=== PATIENT | female | born 1950 | race Caucasian/White ===

== ENCOUNTER → 2017-12-03 | Outpatient (CLI) | payer MEDICARE ==
--- NOTE | 2017-12-03 18:09 | BD ---
EXAMINATION TYPE: MG DEXA axial skeleton. DATE OF EXAM: 12/03/2017 COMPARISON: NONE CLINICAL HISTORY: 66-year-old female postmenopausal screening Height: 66 IN Weight: 190 LBS FRAX RISK QUESTIONS: Alcohol (3 or more units per day): NO Family History (Parent hip fracture): NO Glucocorticoids (More than 3mos): NO (Ex: prednisone, prednisolone, methylprednisolone, dexamethasone, and hydrocortisone). History of Fracture in Adulthood: NO Secondary Osteoporosis: 1. Type 1 Diabetes: NO 2. Hyperthyroidism: NO 3. Menopause before 45: AGE 58 4. Malnutrition: NO 5. Chronic liver disease: NO Rheumatoid Arthritis: NO Current Tobacco Use: NO RISK FACTORS HISTORY OF: Active: YES Postmenopausal woman: AGE 58 MEDICATIONS: Thyroid Medications: YES Which medication: Synthroid How Lon+ YEARS Additional Medications: CALCIUM, VIT D, SYNTHROID, NORVASC, ZOCOR EXAM MEASUREMENTS: Bone mineral densitometry was performed using the [employer] System. Bone mineral density as measured about the Lumbar spine is: ----- L1-L4(G/cm2): 1.243 T Score Values are as follows: ----- L2: 0.5 ----- L3: 1.2 ----- L4: 0.2 ----- L1-L4: 0.5 Bone mineral density has: Decreased -3.1% since study of: 01/13/2005 Bone mineral density about the R hip (g/cm2): 0.867 Bone mineral density about the L hip (g/cm2): 0.819 T Score values are as follows: -----R Neck: -1.2 -----L Neck: -1.6 -----R Total: -0.8 -----L Total: -1.1 Bone mineral density has: Decreased -7.1% since study of: 01/13/2005 IMPRESSION: Osteopenia (T Score between -2.5 and -1 as noted by T score values There is slightly increased risk of fracture and the patient may be considered for treatment. Re-Screen 2-5 years. NOTE: T-SCORE=SD OF THE YOUNG ADULT MEAN.
== END | disposition home or self-care (01) ==
LOC: RADBDWWP 15:10
PROVIDERS: ATTEND Internal Medicine Endocrinology, Diabetes & Metabolism
DX: M85.80 Other specified disorders of bone density and structure, unspecified site (principal)
CPT/HCPCS: 77080

== ENCOUNTER → 2017-12-03 | Outpatient (CLI) | payer MEDICARE ==
--- NOTE | 2017-12-04 11:30 | MM ---
Reason for exam: screening (asymptomatic). Last mammogram was performed 2 years and 7 months ago. History: Patient is postmenopausal and has history of other cancer at age 53. Taking unspecified hormones for 3 years. Physical Findings: A clinical breast exam by your physician is recommended on an annual basis and results should be correlated with mammographic findings. MG 3D Screening Mammo W/Cad Bilateral CC and MLO view(s) were taken. Prior study comparison: May 11, 2015, bilateral MG screening mammo w CAD. October 03, 2012, bilateral digital screening mammo w/CAD. The breast tissue is heterogeneously dense. This may lower the sensitivity of mammography. Stable benign calcifications. Increasing nodularity upper outer left breast. This finding is changed when compared with previous exams. ASSESSMENT: Incomplete: need additional imaging evaluation, BI-RAD 0 RECOMMENDATION: Special view mammogram of the left breast. If lesion persists on supplemental views, image directed ultrasound is recommended. [facility] will attempt to contact patient to return for supplemental views and ultrasound if indicated.
== END | disposition home or self-care (01) ==
LOC: RADMAMWWP 15:07
PROVIDERS: ATTEND Family Medicine
DX: Z12.31 Encounter for screening mammogram for malignant neoplasm of breast (principal); N95.1 Menopausal and female climacteric states
CPT/HCPCS: 77063; 77067

== ENCOUNTER → 2017-12-05 | Outpatient (CLI) | payer MEDICARE ==
--- NOTE | 2017-12-05 09:09 | MM ---
Reason for exam: additional evaluation requested from abnormal screening. Last mammogram was performed less than 1 month ago. History: Patient is postmenopausal and has history of other cancer at age 53. Taking unspecified hormones for 3 years. Physical Findings: Nurse did not find any significant physical abnormalities on exam. MG 3D Work Up W/Cad LT Spot compression CC, spot compression MLO, and ML view(s) were taken of the left breast. Prior study comparison: December 03, 2017, bilateral MG 3d screening mammo w/cad. May 11, 2015, bilateral MG screening mammo w CAD. The breast tissue is heterogeneously dense. This may lower the sensitivity of mammography. Finding: There is a 9 mm equal density (isodense) mass in the outer quadrant, central position of the left breast. These results were verbally communicated with the patient and result sheet given to the patient on 12/05/17. ASSESSMENT: Incomplete: need additional imaging evaluation, BI-RAD 0 RECOMMENDATION: Ultrasound of the left breast.
--- NOTE | 2017-12-05 09:12 | USB ---
Reason for exam: additional evaluation requested from abnormal screening. History: Patient is postmenopausal and has history of other cancer at age 53. Taking unspecified hormones for 3 years. US Breast Workup LT Left breast ultrasound includes all four quadrants, the retroareolar region and axilla. Finding demonstrates a 0.5 x 1.0 x 0.5cm irregular, mixed lesion at 12 o'clock, duct ectasia at 1 o'clock, a 0.9 x 0.6 x 0.3cm oval, mixed lesion at 3 o'clock, a 0.4 x 0.5 x 0.3cm oval, mixed cluster at 11 o'clock and duct ectasia at 11:30. These results were verbally communicated with the patient and result sheet given to the patient on 12/05/17. ASSESSMENT: Suspicious, BI-RAD 4 RECOMMENDATION: Surgical consultation and ultrasound core biopsy of the left breast. Called Dr. Vicente with mammographic findings and has scheduled an appointment for the patient for 12/05/17 at 9:[address] Andino. PRELIMINARY REPORT CALLED AND FAXED TO DR. ANDINO ON 12/05/17.
== END | disposition home or self-care (01) ==
LOC: RADMAMWWP 07:30
PROVIDERS: ATTEND Family Medicine
DX: R92.8 Other abnormal and inconclusive findings on diagnostic imaging of breast (principal)
CPT/HCPCS: 77065; 76641; G0279

== ENCOUNTER → 2017-12-18 | Day surgery (SDC) | payer MEDICARE ==
[2017-12-18 12:17] VITALS: RESP 16; BMI 30.3
--- NOTE | 2017-12-18 14:00 | USB ---
EXAMINATION TYPE: US biopsy breast VAD LT, MG diagnostic mammo LT wo CAD DATE OF EXAM: 12/18/2017 CLINICAL HISTORY: R92.8 ABN MAMMO. TECHNIQUE: Ultrasound guided core biopsy of left breast. COMPARISON: Exams dating back to 12/03/2017. FINDINGS: The procedure of ultrasound guided core biopsy was explained to the patient. Benefits, alternatives, and risks were discussed. An informed consent was then obtained. Preprocedural timeout was performed. The patient was placed in supine positioning for imaging and for the procedure. The overlying skin was prepped and draped in usual sterile fashion. 10 cc of lidocaine buffered with bicarbonate was used as anesthetic into the skin and subcutaneous tissue up to the 0.5 x 1.0 x 0.5 cm mass stated to be at the 12:00 position in the left breast on the ultrasound of 12/05/2017. Under ultrasound guidance, a 12-gauge vacuum assisted biopsy gun device was used to obtain 5 core samples. Following this, a ribbon-shaped biopsy marker was left in lesion. The patient tolerated the procedure well without any immediate complication. The patient was kept in the radiology department for short stay after the procedure and then discharged home in stable condition. Postprocedural mammogram demonstrates a biopsy marker to be located at approximately the 2:00 position but corresponds to a mammographic mass on the screening mammogram. IMPRESSION: Successful, uncomplicated ultrasound guided core biopsy of an irregular 1.0 cm left breast mass, full pathology results to follow. Pathology Results: Benign BREAST, LEFT, CORE BIOPSY: PROLIFERATIVE FIBROCYSTIC CHANGES INCLUDING MODERATE USUAL TYPE DUCTAL HYPERPLASIA, FIBROSIS, CYSTS AND ADENOSIS Recommendation Follow up mammogram and ultrasound of the left breast in 6 months. JOHNNIE
[2017-12-18 14:32] VITALS: BP 131/71; PULSE 61; TEMP 97.9
== END ==
LOC: RADUSWWP 11:23
PROVIDERS: ATTEND Surgery
DX: N60.92 Unspecified benign mammary dysplasia of left breast (principal); N60.32 Fibrosclerosis of left breast; N60.22 Fibroadenosis of left breast
CPT/HCPCS: 88305; 77065; 19083; A4648; J2001

== ENCOUNTER → 2018-08-20 | Outpatient (CLI) | payer MEDICARE ==
--- NOTE | 2018-08-20 15:04 | MM ---
Reason for exam: follow-up at short interval from prior study. Last mammogram was performed 8 months ago. History: Patient is postmenopausal and has history of other cancer at age 53. Benign US biopsy breast VAD LT of the left breast, December 18, 2017. Taking unspecified hormones for 3 years. Physical Findings: Nurse did not find any significant physical abnormalities on exam. MG 3D Diag Mammo W/Cad LT CC and MLO view(s) were taken of the left breast. Prior study comparison: December 18, 2017, left breast MG diagnostic mammo LT wo CAD. December 05, 2017, left breast MG 3d work up w/cad LT. The breast tissue is heterogeneously dense. This may lower the sensitivity of mammography. There are benign appearing round oval circumscribed left masses, similar to prior exams. No suspicious abnormality. Left ribbon biopsy marker is noted to be lateral but corresponds to sonographic biopsied mass at 12 o'clock possible migration post biopsy. These results were verbally communicated with the patient and result sheet given to the patient on 08/20/18. ASSESSMENT: Benign, BI-RAD 2 RECOMMENDATION: Return to routine screening mammogram schedule for both breasts. Back on schedule for November 2018.
--- NOTE | 2018-08-20 15:06 | USB ---
Reason for exam: follow-up at short interval from prior study. History: Patient is postmenopausal and has history of other cancer at age 53. Benign US biopsy breast VAD LT of the left breast, December 18, 2017. Taking unspecified hormones for 3 years. US Breast LT Left complete breast ultrasound includes all four quadrants, the retroareolar region and axilla. Finding demonstrates a 5 x 2 x 6mm cystic lesion at 12 o'clock, a 4 x 2 x 3mm cystic lesion at 12 o'clock, a 9 x 3 x 7mm cystic lesion at 2 o'clock and a 3 x 4 x 4mm mixed, hypoechoic lesion at 12 o'clock, corresponds to biopsy proven benign etiology. These results were verbally communicated with the patient and result sheet given to the patient on 08/20/18. ASSESSMENT: Benign, BI-RAD 2 RECOMMENDATION: Return to routine screening mammogram schedule for both breasts. Back on schedule for November 2018.
== END | disposition home or self-care (01) ==
LOC: RADMAMWWP 13:36
PROVIDERS: ATTEND Family Medicine
DX: N60.12 Diffuse cystic mastopathy of left breast (principal)
CPT/HCPCS: 77065; 76641; G0279; 77061

== ENCOUNTER 2019-06-06 15:50 | Emergency (ER) | payer MEDICARE ==
[2019-06-06 15:56] VITALS: RESP 18
[2019-06-06 16:46] LABS: Basophils # (A) 0.1 k/uL (0-0.2); Basophils % (A) 1 %; Eosinophils # (A) 0.3 k/uL (0-0.7); Eosinophils % (A) 4 %; HCT 40.3 % (34.0-46.0); HGB 14.1 gm/dL (11.4-16.0); Lymphocytes # (A) 1.1 k/uL (1.0-4.8); Lymphocytes % (A) 16 %; MCH 29.9 pg (25.0-35.0); MCHC 35.1 g/dL (31.0-37.0); MCV 85.2 fL (80.0-100.0); Mean Platelet Volume 7.2; Monocytes # (A) 0.4 k/uL (0-1.0); Monocytes % (A) 5 %; Neutrophils # (A) 4.9 k/uL (1.3-7.7); Neutrophils % (A) 72 %; Platelet Count 186 k/uL (150-450); RBC 4.73 m/uL (3.80-5.40); RDW 14.9 % (11.5-15.5); WBC 6.7 k/uL (3.8-10.6)
--- NOTE | 2019-06-06 16:47 | ED ---
General Adult HPI - General Chief complaint: Recheck/Abnormal Lab/Rx Stated complaint: accidental overdose Time Seen by Provider: 06/06/19 15:59 Source: patient, RN notes reviewed, old records reviewed Mode of arrival: ambulatory Limitations: no limitations - History of Present Illness Initial comments: 68-year-old female patient comes to ED for evaluation of electrolytes. Patient reports that she is supposed to take her potassium pills per day. Patient was excised taking ibuprofen and said of potassium. Patient was taking approximately 2400 mg of ibuprofen once a day for the last 4 days. Patient is asymptomatic this time. Systemic: Pt denies fatigue, fever/chills, rash. Pt denies weakness, night sweats, weight loss. Neuro: Pt denies headache, visual disturbances, syncope or pre-syncope. HEENT: Pt denies ocular discharge or irritation, otalgia, rhinorrhea, pharyngitis or notable lymphadenopathy. Cardiopulmonary: Pt denies chest pain, SOB, heart palpitations, dyspnea on exertion. Abdominal/GI: Pt denies abdominal pain, n/v/d. : Pt denies dysuria, burning w/ urination, frequency/urgency. Denies new onset urinary or bowel incontinence. MSK: Pt denies myalgia, loss of strength or function in extremities. Neuro: Pt denies new onset weakness, paresthesias. - Related Data Home Medications Medication Instructions Recorded Confirmed Levothyroxine Sodium [Synthroid] 125 mcg PO AC-LUNCH 12/05/17 06/06/19 Potassium Chloride [Klor-Con 10] 30 meq PO AC-LUNCH 12/05/17 06/06/19 Simvastatin [Zocor] 40 mg PO AC-LUNCH 12/05/17 06/06/19 amLODIPine [Norvasc] 10 mg PO AC-LUNCH 12/05/17 06/06/19 Calcium/Magnesium/Zinc 1 tab PO AC-LUNCH 06/06/19 06/06/19 [Hredvzd-Njaxyzpsm-Vhul Tablet] Ibuprofen [Motrin] 800 mg PO TID PRN 06/06/19 06/06/19 Loratadine [Alavert] 10 mg PO AC-LUNCH 06/06/19 06/06/19 RX: Melatonin 5 mg PO HS 06/06/19 06/06/19 Allergies Allergy/AdvReac Type Severity Reaction Status Date / Time Sulfa (Sulfonamide Allergy Rash/Hives Verified 06/06/19 16:35 Antibiotics) Review of Systems ROS Statement: Those systems with pertinent positive or pertinent negative responses have been documented in the HPI. ROS Other: All systems not noted in ROS Statement are negative. Past Medical History Past Medical History: Cancer, Hyperlipidemia, Hypertension Additional Past Medical History / Comment(s): Hx. thyroid cancer, seasonal allergies, uses inhalers as needed History of Any Multi-Drug Resistant Organisms: None Reported Past Surgical History: Tonsillectomy Additional Past Surgical History / Comment(s): Bilateral arthroscopic shoulder surgery, thyroid removed Past Anesthesia/Blood Transfusion Reactions: Motion Sickness Past Psychological History: Anxiety, Depression Smoking Status: Former smoker Past Alcohol Use History: Daily Past Drug Use History: None Reported General Exam - General Exam Comments Initial Comments: Constitutional: NAD, AOX3, Pt has pleasant affect. HEENT: NC/AT, trachea midline, neck supple, no lymphadenopathy. Posterior pharynx non erythematous, without exudates. External ears appear normal, without discharge. Mucous membranes moist. Eyes PERRLA, EOM intact. There is no scleral icterus. No pallor noted. Cardiopulmonary: RRR, no murmurs, rubs or gallops, no JVD noted. Lungs CTAB in anterior and posterior calderon. No peripheral edema. Abdominal exam: Abdomen soft and non-distended. Abdomen non-tender to palpation in all 4 quadrants. Bowel sounds active in LLQ. No hepatosplenomegaly. No ecchymosis Neuro: CN II-XII grossly intact. No nuchal rigidity. No raccon eyes, no glover sign, no hemotympanum. No cervical spinal tenderness. MSK: No posterior calf tenderness bilaterally, homans sign negative bilaterally. Posterior tibialis and radial pulse +2 bilaterally. Sensation intact in upper and lower extremities. Full active ROM in upper and lower extremities, 5/5 stregnth. Limitations: no limitations Course Vital Signs 06/06/19 15:52 Temperature 97.2 F L Pulse Rate 82 Respiratory 18 Rate Blood Pressure 161/79 O2 Sat by Pulse 98 Oximetry Medical Decision Making - Medical Decision Making 68-year-old female patient comes to ED for evaluation of electrolytes. Patient reports that she is supposed to take her potassium pills per day. Patient was excised taking ibuprofen and said of potassium. Patient was taking approximately 2400 mg of ibuprofen once a day for the last 4 days. Patient is asymptomatic this time. Patient fell signs stable, afebrile. Physical exam not display acute pathology. Laboratory investigations non-impressive. EKG not concerning for acute ischemia. Patient will discharge, follow up with primary care provider, return to ER if condition worsens. Case discussed with Dr. Landry. - Lab Data Result diagrams: 06/06/19 16:37 06/06/19 16:37 Lab Results 06/06/19 06/06/19 Range/Units 16:37 16:37 WBC 6.7 (3.8-10.6) k/uL RBC 4.73 (3.80-5.40) m/uL Hgb 14.1 (11.4-16.0) gm/dL Hct 40.3 (34.0-46.0) % MCV 85.2 (80.0-100.0) fL MCH 29.9 (25.0-35.0) pg MCHC 35.1 (31.0-37.0) g/dL RDW 14.9 (11.5-15.5) % Plt Count 186 (150-450) k/uL Neutrophils % 72 % Lymphocytes % 16 % Monocytes % 5 % Eosinophils % 4 % Basophils % 1 % Neutrophils # 4.9 (1.3-7.7) k/uL Lymphocytes # 1.1 (1.0-4.8) k/uL Monocytes # 0.4 (0-1.0) k/uL Eosinophils # 0.3 (0-0.7) k/uL Basophils # 0.1 (0-0.2) k/uL Sodium 140 (137-145) mmol/L Potassium 3.6 (3.5-5.1) mmol/L Chloride 104 (98-107) mmol/L Carbon Dioxide 27 (22-30) mmol/L Anion Gap 9 mmol/L BUN 26 H (7-17) mg/dL Creatinine 0.81 (0.52-1.04) mg/dL Est GFR (CKD-EPI)AfAm 88 (>60 ml/min/1.73 sqM) Est GFR (CKD-EPI)NonAf 76 (>60 ml/min/1.73 sqM) Glucose 99 (74-99) mg/dL Calcium 9.2 (8.4-10.2) mg/dL Total Bilirubin 1.3 (0.2-1.3) mg/dL AST 27 (14-36) U/L ALT 31 (9-52) U/L Alkaline Phosphatase 74 (38-126) U/L Total Protein 6.8 (6.3-8.2) g/dL Albumin 4.2 (3.5-5.0) g/dL - EKG Data -: EKG Interpreted by Me (and Dr. Landry) EKG Comments: Ventricular rate 75,. Full and 52, QRS 80, QT/QTC 398 since 444, normal sinus rhythm, possible left atrial enlargement, nonspecific ST and [place], abnormal EKG. No concern for acute ischemia. Disposition Clinical Impression: History of low potassium Disposition: HOME SELF-CARE Condition: Stable Additional Instructions: Patient to adhere to previously discussed treatment plan and will take medication(s) as directed. Patient to follow up with PCP in 1-2 days. Patient to return to ED if symptoms do not improve. Is patient prescribed a controlled substance at d/c from ED?: No Referrals: Nam Vicente DO [Primary Care Provider] - 1-2 days
[2019-06-06 16:55] LABS: Albumin 4.2 g/dL (3.5-5.0); Calcium 9.2 mg/dL (8.4-10.2); Potassium 3.6 mmol/L (3.5-5.1); Total Bilirubin 1.3 mg/dL (0.2-1.3); Total Protein 6.8 g/dL (6.3-8.2)
[2019-06-06 17:37] VITALS: BP 124/66; PULSE 64; TEMP 97.7
== END 2019-06-06 17:37 | disposition home or self-care (01) ==
LOC: EC 15:50
DX: T39.311A Poisoning by propionic acid derivatives, accidental (unintentional), initial encounter (principal); Z86.39 Personal history of other endocrine, nutritional and metabolic disease; E78.5 Hyperlipidemia, unspecified; I10 Essential (primary) hypertension; Z79.890 Hormone replacement therapy; Z79.899 Other long term (current) drug therapy; Z88.2 Allergy status to sulfonamides; Z87.891 Personal history of nicotine dependence; Z85.850 Personal history of malignant neoplasm of thyroid
CPT/HCPCS: 36415; 80053; 85025; 93005; 99284

== ENCOUNTER 2021-04-11 10:18 | Emergency (ER) | payer MEDICARE ==
[2021-04-11 10:40] VITALS: BP 172/92; PULSE 94; RESP 18; TEMP 97.2
--- NOTE | 2021-04-11 10:57 | ED ---
Female Urogenital HPI - General Chief complaint: Urogenital Stated complaint: Female Source: patient, RN notes reviewed, old records reviewed Mode of arrival: ambulatory Limitations: no limitations - History of Present Illness Initial comments: 70-year-old white female, alert and oriented 4, presents to the emergency room with complaints of dysuria that started yesterday. Patient states that she's had intermittent intense feeling but does not describe it as pain but gets relief after she urinates. Patient states that she was overdoing it working with her in the yard yesterday and developed the symptoms. She states that she urinate but does not describe it as dysuria she is voiding large amounts at a time and does get relief after urination. Patient states today when she urinated there was a little bit of pink on the toilet paper and she didn't want it to progress so she came to the emergency room. Patient has a history of hypertension, high cholesterol, thyroid cancer, she did have a volar mold that was removed and not cancerous in the past. Patient denies fevers, nausea or vomiting. States had a bowel movement yesterday and was constipated. MD Complaint: dysuria -: days(s) (1) Radiation: non-radiating Severity scale (1-10): 0 Quality: other ("intense" fullness) Consistency: intermittent, now resolved Improves with: urination Worsens with: none Patient : No Associated Symptoms: other (Vaginal prolapse) - Related Data Home Medications Medication Instructions Recorded Confirmed Levothyroxine Sodium [Synthroid] 125 mcg PO AC-LUNCH 12/05/17 06/06/19 Potassium Chloride [Klor-Con 10] 30 meq PO AC-LUNCH 12/05/17 06/06/19 Simvastatin [Zocor] 40 mg PO AC-LUNCH 12/05/17 06/06/19 amLODIPine [Norvasc] 10 mg PO AC-LUNCH 12/05/17 06/06/19 Calcium/Magnesium/Zinc 1 tab PO AC-LUNCH 06/06/19 06/06/19 [Fbqkhbq-Rihwountc-Ntwi Tablet] Ibuprofen [Motrin] 800 mg PO TID PRN 06/06/19 06/06/19 Loratadine [Alavert] 10 mg PO AC-LUNCH 06/06/19 06/06/19 Melatonin 5 mg PO HS 06/06/19 06/06/19 Previous Rx's Medication Instructions Recorded Cephalexin [Keflex] 500 mg PO BID 7 Days #14 cap 04/11/21 Allergies Allergy/AdvReac Type Severity Reaction Status Date / Time Sulfa (Sulfonamide Allergy Rash/Hives Verified 04/11/21 10:40 Antibiotics) Review of Systems ROS Statement: Those systems with pertinent positive or pertinent negative responses have been documented in the HPI. ROS Other: All systems not noted in ROS Statement are negative. Past Medical History Past Medical History: Cancer, Hyperlipidemia, Hypertension Additional Past Medical History / Comment(s): Hx. thyroid cancer, seasonal allergies, uses inhalers as needed History of Any Multi-Drug Resistant Organisms: None Reported Past Surgical History: Tonsillectomy Additional Past Surgical History / Comment(s): Bilateral arthroscopic shoulder surgery, thyroid removed, biopsy/removal of lump from vulva- patient states not cancer Past Anesthesia/Blood Transfusion Reactions: Motion Sickness Past Psychological History: Anxiety, Depression Smoking Status: Never smoker Past Alcohol Use History: Daily Past Drug Use History: None Reported General Exam Limitations: no limitations General appearance: alert, in no apparent distress Head exam: Present: atraumatic, normocephalic, normal inspection Eye exam: Present: normal appearance, PERRL, EOMI. Absent: scleral icterus, conjunctival injection, periorbital swelling Pupils: Present: normal accommodation ENT exam: Present: normal exam, normal oropharynx, mucous membranes moist Neck exam: Present: normal inspection, full ROM. Absent: tenderness, meningismus, lymphadenopathy, thyromegaly Respiratory exam: Present: normal lung sounds bilaterally. Absent: respiratory distress, wheezes, chest wall tenderness, accessory muscle use, decreased breath sounds, prolonged expiratory Cardiovascular Exam: Present: regular rate, normal rhythm, normal heart sounds. Absent: systolic murmur, diastolic murmur, rubs, gallop, clicks GI/Abdominal exam: Present: soft, normal bowel sounds. Absent: distended, tenderness, guarding, rebound, rigid, hernia External exam: Absent: erythema, swelling, lacerations, ecchymosis Speculum exam: Absent: vaginal bleeding, foreign body By manual exam: Absent: cervical motion tenderness, adnexal tenderness, adnexal mass, uterine tenderness (vaginal prolapse with straining) Extremities exam: Present: normal inspection, full ROM, normal capillary refill. Absent: tenderness, pedal edema, joint swelling, calf tenderness Back exam: Present: normal inspection, full ROM. Absent: tenderness, CVA tenderness (R), CVA tenderness (L), muscle spasm, paraspinal tenderness, vertebral tenderness, rash noted Neurological exam: Present: alert, oriented X3, CN II-XII intact Psychiatric exam: Present: normal affect, normal mood Skin exam: Present: warm, dry, intact, normal color. Absent: rash, cyanosis, diaphoretic, erythema, petechiae, pallor, mottled Course Vital Signs 04/11/21 10:37 Temperature 97.2 F L Pulse Rate 94 Respiratory 18 Rate Blood Pressure 172/92 O2 Sat by Pulse 96 Oximetry Medical Decision Making - Medical Decision Making UA shows wbc count 129 with positive leukocytes, positive ketones and positive blood patient will be treated with Keflex 500 mg twice a day. Patient has no systemic symptoms no fevers not tachycardic, no nausea vomiting or diarrhea. Patient has no CVA tenderness. Patient has no vaginal bleeding or vaginal discharge. Case discussed with Dr. Landry - Lab Data Lab Results 04/11/21 Range/Units 11:02 Urine Color Light Red Urine Appearance Cloudy H (Clear) Urine pH 6.0 (5.0-8.0) Ur Specific [place] 1.020 (1.001-1.035) Urine Protein 1+ H (Negative) Urine Glucose (UA) Negative (Negative) Urine Ketones 1+ H (Negative) Urine Blood Large H (Negative) Urine Nitrite Negative (Negative) Urine Bilirubin Negative (Negative) Urine Urobilinogen <2.0 (<2.0) mg/dL Ur Leukocyte Esterase Large H (Negative) Urine RBC >182 H (0-5) /hpf Urine WBC 129 H (0-5) /hpf Ur Squamous Epith Cells 2 (0-4) /hpf Urine Bacteria Few H (None) /hpf Disposition Clinical Impression: Urinary tract infection Disposition: HOME SELF-CARE Condition: Good Instructions (If sedation given, give patient instructions): Urinary Tract I nfection in Women (ED) Additional Instructions: Keep your appointment with Dr. Vicente in April. Take Keflex as prescribed and return if worsening symptoms. Prescriptions: Cephalexin [Keflex] 500 mg PO BID 7 Days #14 cap Is patient prescribed a controlled substance at d/c from ED?: No Referrals: Nam Vicente, [Primary Care Provider] - 1-2 days Time of Disposition: 11:59
[2021-04-11 11:37] LABS: Appearance,Urine Cloudy (Clear); Bacteria,Urine Few /hpf; Bilirubin,Urine Negative (Negative); Blood,Urine Large (Negative); Color,Urine Light Red; Glucose,Urine (UA) Negative (Negative); Ketones,Urine 1+ (Negative); Leukocyte Esterase,Urine Large (Negative); Nitrite,Urine Negative (Negative); Protein,Urine 1+ (Negative); RBC,Urine >182 /hpf (0-5); Squamous Epithelial Cell,Urine 2 /hpf (0-4); Urobilinogen,Urine <2.0 mg/dL (<2.0); WBC,Urine 129 /hpf (0-5)
== END 2021-04-11 12:04 | disposition home or self-care (01) ==
LOC: EC 10:18
DX: N39.0 Urinary tract infection, site not specified (principal); I10 Essential (primary) hypertension; E78.5 Hyperlipidemia, unspecified; F32.9 Major depressive disorder, single episode, unspecified; F41.9 Anxiety disorder, unspecified; N81.10 Cystocele, unspecified
CPT/HCPCS: 81001; 87086; 99283

== ENCOUNTER → 2021-06-28 | Outpatient (CLI) | payer MEDICARE ==
[2021-06-28 15:59] LABS: Basophils % (A) 1 %; Eosinophils # (A) 0.1 k/uL (0-0.7); Eosinophils % (A) 1 %; HCT 43.5 % (34.0-46.0); HGB 14.9 gm/dL (11.4-16.0); Lymphocytes # (A) 1.2 k/uL (1.0-4.8); Lymphocytes % (A) 22 %; MCH 30.5 pg (25.0-35.0); MCHC 34.2 g/dL (31.0-37.0); MCV 89.2 fL (80.0-100.0); Mean Platelet Volume 7.8; Monocytes # (A) 0.3 k/uL (0-1.0); Monocytes % (A) 5 %; Neutrophils % (A) 71 %; Platelet Count 173 k/uL (150-450); RBC 4.87 m/uL (3.80-5.40); RDW 12.9 % (11.5-15.5); WBC 5.7 k/uL (3.8-10.6)
[2021-06-28 16:09] LABS: African American GFR (CKD) >90 (>60 ml/min/1.73 sqM); Anion Gap 6 mmol/L; Blood Urea Nitrogen 22 mg/dL (7-17); Carbon Dioxide 26 mmol/L (22-30); Chloride 106 mmol/L (98-107); Non-African American GFR(CKD) 85 (>60 ml/min/1.73 sqM); Potassium 3.9 mmol/L (3.5-5.1); Sodium 138 mmol/L (137-145)
== END | disposition home or self-care (01) ==
LOC: LABPAT 14:36
PROVIDERS: ATTEND Obstetrics & Gynecology
DX: Z01.818 Encounter for other preprocedural examination (principal); N81.6 Rectocele; I10 Essential (primary) hypertension; R94.31 Abnormal electrocardiogram [ECG] [EKG]
CPT/HCPCS: 36415; 80051; 82565; 84520; 85025; 87086; 93005

== ENCOUNTER 2021-07-19 05:49 | Day surgery (SDC) | payer MEDICARE ==
[2021-06-30 09:47] VITALS: BMI 21.1
--- NOTE | 2021-07-04 12:56 | HP ---
HISTORY AND PHYSICAL DATE OF DICTATION: 07/04/2021. DATE OF SURGERY: 07/05/2021 HISTORY OF PRESENT ILLNESS: The patient is a 70-year-old 3, para 3-0-0-3, who presents on referral from Dr. Vicente for evaluation of rectocele. She reports having developed a bulge outside of the vagina which has been present for about 2 months and reduces on its own at nighttime or at rest. She does not require splinting in order to either urinate or evacuate her bowels. She is no longer at this time sexually active. PAST MEDICAL HISTORY: Significant for asthma, hyperlipidemia, hypertension, hypothyroidism, and history of thyroid cancer. SURGICAL HISTORY: She has undergone plasty, breast biopsy, colonoscopy, endocervical polypectomy, hemorrhoidectomy, thyroidectomy, and tonsillectomy. There have been no significant anesthetic concerns by her report. OBSTETRICAL HISTORY: 3, para 3-0-0-3, with three term vaginal deliveries without complications. GYNECOLOGIC HISTORY: Unremarkable, with no history of any infections to include STDs. She otherwise has only issues as listed in history of present illness. FAMILY HISTORY: Noncontributory. SOCIAL HISTORY: The patient is and a nonsmoker. She otherwise is retired and denies any other social concerns. CURRENT MEDICATIONS: Current medications include albuterol metered-dose inhaler as needed, amlodipine 10 mg daily, Klor-Con 10 mg, two tablets 3 times daily, Simvastatin 40 mg daily, Synthroid 100 mcg daily. ALLERGIES: SULFA and ENVIRONMENTAL MOLDS. REVIEW OF SYSTEMS: Review of systems is confined to history of present illness. PHYSICAL EXAMINATION: Vital signs are stable. The patient is afebrile. In general, this is a well- developed, well-nourished white female in no acute distress. Her heart has a regular rhythm and rate without murmur. Her lungs are clear to auscultation bilaterally in all calderon. Her abdomen is nondistended, has normoactive bowel sounds, is soft, nontender, and without any palpable masses, hepatosplenomegaly, or hernias. Her extremities are without any cyanosis, clubbing, or edema and are nontender to palpation bilaterally. Pelvic examination demonstrates normal external genitalia and BUS with normal vaginal mucosa and cervix to inspection. There is a grade 3+ rectocele present. The uterus and apex of the vagina as well as the bladder appear to be well supported. The uterus is atrophic in size, mid plane, mobile, nontender, normal in shape. The adnexa are normal and nontender without any apparent masses bilaterally. ASSESSMENT AND PLAN: Symptomatic rectocele. The findings appear to be confined to rectocele alone, making repair of rectocele on its own a reasonable option. I have had her sign a consent for possible vaginal hysterectomy and possible anterior repair, though I do not anticipate this being necessary. The risks and complications of all the procedures have been thoroughly discussed, including the risk for bleeding, bleeding requiring transfusion, infection, and injury to local structures to specifically include the rectum, bladder, bowel, and ureters. She has understood all this and agreed to proceed. We additionally will pretreat with Estrace vaginal cream 0.5 gram intravaginally at bedtime for 2 weeks prior to the procedure. MMODL / IJN: [id number] /
[2021-07-19] MEDS ORDERED: LIDOCAINE 1% (10MG/ML) FOR IV START INTRADERMA PRN (05:58)
[2021-07-19] MEDS ORDERED: MIDAZOLAM 2 MG/2 ML VIAL IV PRN (05:58)
[2021-07-19] MEDS ORDERED: HYDROmorphone 0.5 MG/0.5 ML SYRINGE IVP PRN ×2 (05:58→07:00)
[2021-07-19] MEDS ORDERED: DEXAMETHASONE SOD PHOSPHATE 4 MG/ML 1 ML VIAL IV ONE (05:58)
[2021-07-19] MEDS ORDERED: fentaNYL (PF) 50 MCG/ML 2 ML AMP IVP PRN (05:58)
[2021-07-19] MEDS ORDERED: ONDANSETRON 4 MG/2 ML VIAL IVP ONE (05:58)
[2021-07-19] MEDS: LACTATED RINGERS 1,000 ML IV SCH ×5 (06:20→21:04)
[2021-07-19] MEDS ORDERED: SODIUM CHLORIDE 0.9% 100 ML with ceFAZolin 2,000 MG IV ONE ×2 (07:36)
[2021-07-19] MEDS ORDERED: BACITRACIN ZINC 500 UNIT/GM OINT 28.4 GM TUBE TOPICAL ONE (07:55)
[2021-07-19] MEDS ORDERED: VASOPRESSIN 20 UNIT/ML 1 ML VIAL IV ONE (07:55)
[2021-07-19] MEDS ORDERED: IBUPROFEN 600 MG TAB PO PRN (08:46)
[2021-07-19] MEDS ORDERED: Acetaminophen-Codeine 300-30mg TAB PO PRN ×2 (08:46)
[2021-07-19] MEDS ORDERED: SIMETHICONE 80 MG CHEWABLE PO PRN (08:46)
[2021-07-19] MEDS ORDERED: METOCLOPRAMIDE 5 MG/ML 2 ML VIAL IVP PRN (08:46)
[2021-07-19] MEDS ORDERED: diphenhydrAMINE 50 MG/ML 1 ML VIAL IVP PRN (08:46)
[2021-07-19] MEDS ORDERED: ONDANSETRON 4 MG/2 ML VIAL IVP PRN (08:46)
--- NOTE | 2021-07-19 08:54 | P.OP ---
Date of Procedure: 07/19/21 Preoperative Diagnosis: #1. Symptomatic grade 3-4 rectocele Postoperative Diagnosis: Same Procedure(s) Performed: #1. Posterior colporrhaphy Anesthesia: CHRISA Surgeon: Hubert Chen Estimated Blood Loss (ml): 25 IV fluids (ml): 400 Urine output (ml): 50 Pathology: none sent Condition: stable Disposition: PACU Operative Findings: Preoperative pelvic examination demonstrated findings somewhat to the office with a large rectocele and reasonable support at the vaginal apex and for the bladder. The postprocedural result appeared excellent. Description of Procedure: The patient was prepped and draped in usual fashion after general endotracheal anesthesia was administered by the anesthesiologist. The hymeneal ring was grasped with 2 Allis clamps at approximately 4:00 and 7:00. A triangle her shap ed wedge of tissue was removed over the perineal body and discarded. The Allis clamps were then moved to the midline and the rectovaginal mucosa infused with diluted vasopressin solution from the introitus to the apex of the repair in the midline near the cervix. The mucosa was then undermined in the midline with the Metzenbaum scissors and divided to the apex of the repair which was again near the cervix. Allis clamps were placed along the margins. The mucosa was then dissected bilaterally from the underlying tissues both bluntly and sharply. There was a moderate enterocele noted at the apex of the dissection. Once adequate reflection had been carried out, serial Mala plication stitches were started at the cervical apex of the repair using 2-0 PDS. Multiple stitches were placed in this fashion to the opening of the vagina at which time the final stitch included a pursestring to close the final defect. The intervening extraneous vaginal mucosa was trimmed to the apex. The vaginal mucosa was then closed with a running locking stitch of 2-0 Vicryl to the opening the vagina at which time standard perineoplasty was used to finish the procedure. The Garcia catheter was then placed and clear rosario urine was noted. The vagina was packed with one-inch iodophor gauze covered with bacitracin ointment. Estimated blood loss for the entire case was approximately 25 mL. There were no complications. All sponge, instrument, and needle counts were correct. The patient tolerated the procedure well and proceeded to the recovery room in stable condition.
[2021-07-19] MEDS ORDERED: NALOXONE 0.4 MG/ML 1 ML VIAL IV PRN (09:22)
[2021-07-19] MEDS ORDERED: MORPHINE SULFATE 2 MG/ML SYRINGE IVP PRN (09:22)
[2021-07-19] MEDS: KETOROLAC 15 MG/ML 1 ML VIAL IVP PRN ×2 (12:00→18:04)
[2021-07-19] MEDS: SENNOSIDES-DOCUSATE SODIUM 1 EACH TAB PO SCH (21:04)
[2021-07-20 05:51] LABS: Basophils % (A) 0 %; Eosinophils # (A) 0.1 k/uL (0-0.7); Eosinophils % (A) 1 %; HGB 12.9 gm/dL (11.4-16.0); Lymphocytes # (A) 1.5 k/uL (1.0-4.8); Lymphocytes % (A) 19 %; MCH 29.7 pg (25.0-35.0); MCHC 33.2 g/dL (31.0-37.0); MCV 89.4 fL (80.0-100.0); Mean Platelet Volume 7.6; Monocytes # (A) 0.5 k/uL (0-1.0); Monocytes % (A) 6 %; Neutrophils # (A) 5.5 k/uL (1.3-7.7); Neutrophils % (A) 72 %; Platelet Count 140 k/uL (150-450); RBC 4.36 m/uL (3.80-5.40); RDW 12.9 % (11.5-15.5); WBC 7.7 k/uL (3.8-10.6)
[2021-07-20] MEDS: LACTATED RINGERS 1,000 ML IV SCH ×2 (06:03→06:04)
[2021-07-20 06:20] VITALS: RESP 18
[2021-07-20] MEDS ORDERED: LEVOTHYROXINE 125 MCG TAB PO SCH (06:30)
--- NOTE | 2021-07-20 07:16 | P.PN ---
Progress Note - Text Progress Note Date: 07/20/21 Postoperative day 1 status post rectocele repaire under General endotracheal an esthesia,, and intrathecal morphine given for postoperative analgesia, patient doing well, there is no anesthesia related complications, Patient had no headache, vital signs stable , Assessment and plan= postop day 1 , doing well there is no anesthesia related complication.
[2021-07-20] MEDS: SENNOSIDES-DOCUSATE SODIUM 1 EACH TAB PO SCH (08:11)
--- NOTE | 2021-07-20 08:23 | P.DS ---
Providers Expected date of discharge: 07/20/21 Attending physician: Hubert Chen Primary care physician: Nam Vicente - Discharge Diagnosis(es) (1) Rectocele Current Visit: Yes Status: Acute Hospital Course: The patient is a 70-year-old 3 para 3003 who presented for evaluation of rectocele. She was found to have a grade 4 rectocele present which was significantly symptomatic. She was counseled regarding options for treatment and agreed to undergo surgical repair. She was taken the operating room where she underwent posterior colporrhaphy and an incompetent fashion. There was an enterocele noted at the apex of the repair as well. Her postoperative course was entirely unremarkable vital signs remained stable and her temperature was afebrile throughout. She was tolerating regular diet by the afternoon of day of surgery and was deemed stable for discharge on post operative day #1. She was discharged home to follow-up in the office in 2 weeks for recheck in 6 weeks routinely. Discharge instructions included calling for any significantly increased bleeding, pain, fever, or anything else that concerned her. She was mainly instructed to do no heavy lifting over the next 6 weeks, nothing more than a gallon of milk. She is additionally instructed to have nothing in vagina for at least 6 weeks time to include intercourse. She understood all of her ins tructions and agrees follow up as noted above. Discharge medications included only her home medications as well as [id number] analgesic pain medications. Discharge hemoglobin and hematocrit were 12.9 and 39.0 respectively. Procedures: #1. Posterior colporrhaphy Patient Condition at Discharge: Stable Plan - Discharge Summary Discharge Rx Participant: No New Discharge Prescriptions: No Action Potassium Chloride [Klor-Con 10] 30 meq PO HS amLODIPine [Norvasc] 10 mg PO HS Levothyroxine Sodium [Synthroid] 125 mcg PO QAM Magnesium 250 mg PO HS Calcium Carbonate [Calcium] 600 mg PO DAILY Discharge Medication List Levothyroxine Sodium [Synthroid] 125 mcg PO QAM 12/05/17 [History] Potassium Chloride [Klor-Con 10] 30 meq PO HS 12/05/17 [History] amLODIPine [Norvasc] 10 mg PO HS 12/05/17 [History] Calcium Carbonate [Calcium] 600 mg PO DAILY 06/30/21 [History] Magnesium 250 mg PO HS 06/30/21 [History] Follow up Appointment(s)/Referral(s): Hubert Chen MD [STAFF PHYSICIAN] - 2 Weeks Discharge Disposition: HOME SELF-CARE
[2021-07-20 08:32] VITALS: BP 147/80; PULSE 84; TEMP 98.1
== END 2021-07-20 09:40 | disposition home or self-care (01) ==
LOC: OR 05:49 → 6PED 08:32 → OR 07-20 09:40
PROVIDERS: ATTEND Obstetrics & Gynecology
DX: N81.6 Rectocele (principal); J45.909 Unspecified asthma, uncomplicated; E78.5 Hyperlipidemia, unspecified; I10 Essential (primary) hypertension; E03.9 Hypothyroidism, unspecified; Z85.850 Personal history of malignant neoplasm of thyroid
CPT/HCPCS: 57250; 86900 ×2; 86901 ×2; 86850 ×2; 87635; J2250; J1100; J2405; J0690; J1885; 85025

== ENCOUNTER → 2023-03-23 | Outpatient (CLI) | payer MEDICARE ==
--- NOTE | 2023-03-26 08:37 | MM ---
Reason for Exam: Screening (asymptomatic). Last mammogram was performed 5 year(s) and 4 month(s) ago. Patient History: Menarche at age 13. First Full-Term at age 20. Postmenopausal. Other cancer, age 53. Currently using Unspecified Hormone, for 3 years. 12/18/2017, Benign Core Biopsy on the left side. Risk Values: Sandra 5 year model risk: 1.5%. NCI Lifetime model risk: 4.1%. Prior Study Comparison: 12/05/2017 Left Diagnostic Mammogram, [facility]. 12/18/2017 Left Diagnostic Mammogram, [facility]. 08/20/2018 Left Diagnostic Mammogram, [facility]. Tissue Density: The breast tissue is heterogeneously dense. This may lower the sensitivity of mammography. Findings: Analyzed By CAD. There is no suspicious group of microcalcifications or new suspicious mass in either breast. Previous mammotome biopsy left breast. Chronic nodularity within both breasts. Overall Assessment: Benign, BI-RAD 2 Management: Screening Mammogram of both breasts in 1 year. A clinical breast exam by your physician is recommended on an annual basis and results should be correlated with mammographic findings. Electronically signed and approved by: Valentin Davis D.O.
== END | disposition home or self-care (01) ==
LOC: RADMAMWWP 11:41
PROVIDERS: ATTEND Family Medicine
DX: Z12.31 Encounter for screening mammogram for malignant neoplasm of breast (principal); Z78.0 Asymptomatic menopausal state
CPT/HCPCS: 77063; 77067

== ENCOUNTER → 2023-09-27 | Outpatient (CLI) | payer MEDICARE ==
[2023-09-27 15:41] LABS: HCT 46.1 % (37.2-46.3); HGB 15.3 g/dL (12.0-15.0); MCH 28.5 pg (27.0-32.0); MCHC 33.2 g/dL (32.0-37.0); Mean Platelet Volume 9.6 FL (9.5-12.2); NRBC Per 100 WBC 0 X 10*3/uL (0.00-0.01); Platelet Count 191 X 10*3/uL (140-440); RBC 5.36 X 10*6/uL (4.10-5.20); RDW 12.7 % (11.5-14.5); WBC 6.06 X 10*3/uL (4.50-10.00)
[2023-09-27 15:42] LABS: Basophils # (A) 0.05 X 10*3/uL (0.00-0.10); Basophils % (A) 0.8 %; Eosinophils % (A) 3.3 %; Lymphocytes # (A) 1.16 X 10*3/uL (0.90-5.00); Lymphocytes % (A) 19.1 %; Monocytes # (A) 0.48 X 10*3/uL (0.20-1.00); Monocytes % (A) 7.9 %; Neutrophils # (A) 4.16 X 10*3/uL (1.80-7.70); Neutrophils % (A) 68.7 %
[2023-09-27 16:04] LABS: Blood Urea Nitrogen 13.7 mg/dL (9.0-27.0); Chloride 103 mmol/L (96-109); Glucose 95 mg/dL (70-110); Sodium 141 mmol/L (135-145)
== END | disposition home or self-care (01) ==
LOC: LABPAT 10:42
PROVIDERS: ATTEND Obstetrics & Gynecology
DX: Z01.812 Encounter for preprocedural laboratory examination (principal); N81.11 Cystocele, midline
CPT/HCPCS: 80051; 82565; 82947; 84520; 85025; 86850; 86900; 86901; 87086

== ENCOUNTER → 2023-10-01 | Outpatient (CLI) | payer MEDICARE ==
--- NOTE | 2023-10-02 07:31 | CA ---
Transthoracic Echo Report Name: Sushila Cool Age: 72 Gender: F : 1950 Exam Date: 10/01/2023 16:05 Exam Location: [place] [facility] Ht (in): 66 Wt (lb): 160 Ordering Physician: Nam Vicente DO Attending/Referring Phys: Nam Vicente DO Landscaper Helper Lien Sutton RDCS Procedure CPT: Indications: Z01.818 ENCOUNTER FOR OTHER PREPROCEDURAL EXAMINAT Cardiac Hx: Technical Quality: Technically difficult study Contrast 1: Total Dose (mL): Contrast 2: Total Dose (mL): MEASUREMENTS (Male / Female) Normal Values 2D ECHO LV Diastolic Diameter PLAX 4.7 cm 4.2 - 5.9 / 3.9 - 5.3 cm LV Systolic Diameter PLAX 3.1 cm IVS Diastolic Thickness 1.1 cm 0.6 - 1.0 / 0.6 - 0.9 cm LVPW Diastolic Thickness 1.3 cm 0.6 - 1.0 / 0.6 - 0.9 cm LV Relative Wall Thickness 0.5 LA Volume 29.3 cm??? 18 - 58 / 22 - 52 cm??? LA Volume Index 15.8 cm???/m??? 16 - 28 cm???/m??? M-MODE Aortic Root Diameter MM 2.7 cm LA Systolic Diameter MM 4.1 cm LA Ao Ratio MM 1.5 DOPPLER AV Peak Velocity 142.5 cm/s AV Peak Gradient 8.1 mmHg AV Mean Velocity 101.3 cm/s AV Mean Gradient 4.5 mmHg AV Velocity Time Integral 28.9 cm LVOT Peak Velocity 119.7 cm/s LVOT Peak Gradient 5.7 mmHg LVOT Velocity Time Integral 27.1 cm MV Area PHT 3.4 cm??? Mitral E Point Velocity 55.0 cm/s Mitral A Point Velocity 71.6 cm/s Mitral E to A Ratio 0.8 MV Deceleration Time 226.1 ms MV E' Velocity 5.2 cm/s Mitral E to MV E' Ratio 10.5 FINDINGS Left Ventricle Mildly increased left ventricular wall thickness. Left ventricular cavity size normal. Normal left ventricular systolic function with no obvious regional wall motion abnormalities. Left ventricular ejection fraction is estimated at 55-60 %. Right Ventricle Normal right ventricular size and function. Right ventricular systolic pressure within normal limits. Right Atrium Normal right atrial size. Left Atrium Normal left atrial size. Interatrial septal aneurysm. Mitral Valve Structurally normal mitral valve. No mitral stenosis. Mild mitral regurgitation. Aortic Valve Trileaflet aortic valve. No aortic valve stenosis or regurgitation. Tricuspid Valve Structurally normal tricuspid valve. Trace tricuspid regurgitation. Pulmonic Valve Structurally normal pulmonic valve. Pericardium No pericardial effusion. Aorta Normal size aortic root and proximal ascending aorta. CONCLUSIONS Technically difficult study. Left ventricular ejection fraction is estimated at 55-60 %. No obvious regional wall motion abnormalities. No significant valvular dysfunction RVSP could not be estimated No peripheral effusion Previewed by: Dr Cayden Rey (Electronically Signed) Final Date: 02 October 2023 07:31
== END | disposition home or self-care (01) ==
LOC: RADECHMAIN 16:01
PROVIDERS: ATTEND Family Medicine
DX: Z01.818 Encounter for other preprocedural examination (principal)
CPT/HCPCS: 93306

== ENCOUNTER 2023-10-04 05:59 | Day surgery (SDC) | payer MEDICARE ==
--- NOTE | 2023-10-03 20:31 | HP ---
HISTORY AND PHYSICAL DATE OF SCHEDULED SURGERY: 10/04/2023. HISTORY OF PRESENT ILLNESS: The patient is a 72-year-old 3, para 3-0-0-3, who presents to the office with a known history of pelvic organ prolapse. She has, in the past, planned to have a vaginal hysterectomy with anterior repair, but that was pending evaluation by Urology for some incontinence concerns. She saw Dr. Duffy who feels that her incontinence is primarily urge in nature and does not feel that she is a candidate for surgical repair. He did recommend that she perhaps is a candidate for use of an antispasmodic following surgery to repair the prolapse. The patient's symptoms are primarily confined to pressure and generalized discomfort in the pelvic area. She is not sexually active at this time. PAST MEDICAL HISTORY: Significant for asthma, carrier for Factor 5 Leiden, hyperlipidemia, hypertension, hypothyroidism, and thyroid cancer. SURGICAL HISTORY: Significant for arthroplasty, breast biopsy, colonoscopy, hemorrhoidectomy, posterior colporrhaphy, thyroidectomy, tonsillectomy. There is no apparent history of anesthesia concerns. OBSTETRICAL HISTORY: 3, para 3-0-0-3 with 3 term vaginal deliveries without complications. GYNECOLOGIC HISTORY: Unremarkable with no history of any infections including STDs. Is otherwise confined to history of present illness. FAMILY HISTORY: Noncontributory. SOCIAL HISTORY: The patient is and is a nonsmoker. She denies any significant social concerns. CURRENT MEDICATIONS: 1. Amlodipine 10 mg daily. 2. Klor-Con 10 mEq 2 tablets 3 times daily. 3. Simvastatin 40 mg daily. 4. Synthroid 100 mcg daily. ALLERGIES: From a medication perspective to sulfa, which cause hives. REVIEW OF SYSTEMS: Is confined to history of present illness. PHYSICAL EXAMINATION: VITAL SIGNS: Stable. The patient is afebrile. GENERAL: This is a well-developed, well-nourished white female, in no acute distress. HEART: Has a regular rhythm and rate without murmur. LUNGS: Clear to auscultation bilaterally in all calderon. ABDOMEN: Nondistended, has normoactive bowel sounds, soft, nontender, and without any palpable masses, hepatosplenomegaly, or hernias. EXTREMITIES: Without any cyanosis, clubbing, or edema and are nontender to palpation bilaterally. PELVIS: Demonstrates normal external genitalia and BUS with normal vaginal mucosa and cervix. There is a grade 3 cystocele present as well as a grade 2 to 3 uterine prolapse. The uterus is otherwise atrophic in size and in the mid plane. Her adnexa are nonpalpable and nontender without any apparent masses bilaterally. ASSESSMENT: Grade 3 cystocele with grade 2 to 3 uterine prolapse, symptomatic: She has been evaluated by Urology who feels that surgical intervention is not indicated. As a result, we will plan for vaginal hysterectomy with anterior colporrhaphy and any other indicated surgery to include possible removal of the fallopian tubes if possible. The risks and complications of the procedure have been thoroughly discussed including the risks for bleeding, bleeding requiring transfusion, infection, and injury to local structures to specifically include the bowel, bladder, and ureters. She has understood all of this and agreed to proceed and we are scheduled for the morning of 10/04/2023 for the procedures as outlined above. She has been pretreated with Estrace vaginal cream. MMODL / IJN: [id number] /
[~2023-10-04 05:59] MED LIST: DEXAMETHASONE SOD PHOSPHATE 4 MG/ML 1 ML VIAL IV ONE; LIDOCAINE 1% (10MG/ML) FOR IV START INTRADERMA PRN; ONDANSETRON 4 MG/2 ML VIAL IVP ONE; droPERidol 5 MG/2 ML VIAL IVP ONE
[2023-10-04] MEDS ORDERED: HYDROmorphone 0.5 MG/0.5 ML SYRINGE IVP PRN (07:00)
[2023-10-04] MEDS ORDERED: MIDAZOLAM 2 MG/2 ML VIAL IVP ONE (07:11)
[2023-10-04] MEDS: LACTATED RINGERS 1,000 ML IV SCH ×4 (07:19→14:35)
--- NOTE | 2023-10-04 07:21 | P.ANPRN ---
Procedure Note - Anesthesia - Epidural/Spinal Spinal Time Out Performed: Yes Date of Procedure: 10/04/23 Procedure Start Time: 07:10 Procedure Stop Time: 07:14 Location of Patient: PreOp Indication: Acute Post-Operative Pain, Analgesia, Requested by Surgeon Sedation Type: Sedate with meaningful contact maintained Preparation: Sterile Prep Number of Attempts: 1 Position: Sitting Catheter: None Needle Guage: 25 Injectate: [id number] Blood Aspirated: No Pain Paresthesia on Injection Noted: No Events: Uneventful and Well Tolerated
[2023-10-04] MEDS ORDERED: PROPOFOL 10 MG/ML 20 ML VIAL IV ONE (07:25)
[2023-10-04] MEDS ORDERED: SUCCINYLCHOLINE CHLORIDE 200 MG/10 ML VIAL IV ONE (07:25)
[2023-10-04] MEDS ORDERED: fentaNYL (PF) 50 MCG/ML 2 ML AMP ONE (07:25)
[2023-10-04] MEDS ORDERED: MORPHINE SULFATE (PF) 0.3 MG/0.3 ML SYR ONE (07:25)
[2023-10-04] MEDS ORDERED: LIDOCAINE 1% INJ 10MG/ML (20 ML MDV) ONE (07:25)
[2023-10-04] MEDS ORDERED: VASOPRESSIN 20 UNIT/ML 1 ML VIAL SQ ONE ×2 (07:52)
[2023-10-04] MEDS ORDERED: BACITRACIN ZINC 500 UNIT/GM OINT 28.4 GM TUBE TOPICAL ONE (07:53)
[2023-10-04] MEDS ORDERED: METOCLOPRAMIDE 5 MG/ML 2 ML VIAL IVP PRN (09:02)
[2023-10-04] MEDS ORDERED: IBUPROFEN 600 MG TAB PO PRN (09:02)
[2023-10-04] MEDS ORDERED: SIMETHICONE 80 MG CHEWABLE PO PRN (09:02)
[2023-10-04] MEDS ORDERED: Acetaminophen-Codeine 300-30mg TAB PO PRN ×2 (09:02)
[2023-10-04] MEDS ORDERED: ONDANSETRON 4 MG/2 ML VIAL IVP PRN (09:02)
--- NOTE | 2023-10-04 09:12 | P.OP ---
Date of Procedure: 10/04/23 Preoperative Diagnosis: #1. Symptomatic grade 3 cystocele #2. Symptomatic grade 2+ uterine prolapse Postoperative Diagnosis: Same Procedure(s) Performed: #1. Vaginal hysterectomy #2. Anterior colporrhaphy Anesthesia: ARA Surgeon: Hubert Chen Blasting Machine Operator #1: Candida Fuller Estimated Blood Loss (ml): 20 IV fluids (ml): 600 Urine output (ml): 150 Pathology: other (Uterus) Condition: stable Disposition: PACU Operative Findings: Preoperative pelvic examination confirmed the findings the in the diagnoses close above. Was a grade 3 cystocele placenta grade 2+ uterine prolapse. The rectocele has previously been repaired approximately 2-3 years ago. This remains well supported. Intraoperatively, I was unable to see either ovary and both were palpably normal and small. The tubes were not amenable are accessible to removal. Description of Procedure: The patient was prepped and draped in usual fashion after general endotracheal anesthesia was administered by the anesthesiologist. The bladder was drained of approximately 150 mL of clear rosario urine. A weighted speculum was placed and the cervix grasped with a double-tooth tenaculum. The cervicovaginal mucosa was infused circumferentially with diluted vasopressin solution then opened sharply with a scalpel. The mucosa was reflected distally both sharply and bluntly. The posterior peritoneum was identified, incised sharply with the scissors and tied with a 20 stitch of 2-0 Vicryl for later closure. The short weighted speculum was replaced with a long weighted speculum. Curved Mercedez Sandstone clamps utilized to clamp the uterosacral ligaments on each side. Each pedicle was cut and suture-ligated with a transfixion stitch of 0 Vicryl. Serial bites were taken up the cardinal ligament towards the fundus of the uterus with curved Rehana-Sandstone clamps, each was cut and suture-ligated with a transfixion stitch of 0 Vicryl. After approximately 2-3 bites on each side, the uterus was inverted posteriorly and the anterior peritoneum identified and was already open. This isolated the utero-ovarian pedicles on each side were clamped with curved Rehana-Sandstone clamps, cut, and suture-ligated with a transfixion stitch of 0 Vicryl followed by a free tie of 0 Vicryl. Hemostasis appeared to be excellent. The ovaries were unable to be seen but were felt with the finger and an entirely benign in very high in nature. The long weighted speculum was replaced the short weighted speculum and the previously placed stitch of 2-0 Vicryl was utilized to close the parietal peritoneum in a pursestring fashion. The pedicles again appeared to be dry. The uterosacral ligament on each side was passed to the contralateral side through both uterosacral ligament and the vaginal mucosa in a modified Browning's culdoplasty. The intervening open vaginal mucosa posteriorly was closed with interrupted [id number] stitches of 0 Vicryl. The anterior mucosa was grasped at its apex with 2 Allis clamps just off of midline on each side. The vesicovaginal mucosa was infused with diluted vasopressin solution in the midline towards the urethral apex, undermined with Metzenbaum scissors and divided in the midline with Allis clamps placed along the margins. The mucosa was sharply and bluntly dissected from the underlying tissues. Once adequate dissection had been carried out, a Garcia catheter was placed and clear rosario urine noted. Serial Mala plication stitches were placed with 2-0 PDS from the urethral apex to the apex of the hysterectomy incision. After placement of the Mala plication stitches, and the intervening redundant vaginal mucosa was trimmed with the Metzenbaum scissors and discarded. The open vaginal mucosa was closed with a running locking stitch of 2-0 Vicryl from the urethral apex to the apex of the vagina. Estimated blood loss for the entire case was approximately 20 mL. There were no complications. Urine was clear following the case and the Garcia catheter was mobile. The patient tolerated the procedure well and proceeded to the recovery room in stable condition. All sponge, instrument, needle counts were correct.
[2023-10-04] MEDS: diphenhydrAMINE 50 MG/ML 1 ML VIAL IVP PRN ×2 (12:30→21:14)
[2023-10-04] MEDS: KETOROLAC 15 MG/ML 1 ML VIAL IVP PRN ×2 (12:30→19:56)
[2023-10-04] MEDS: SENNOSIDES-DOCUSATE SODIUM 1 EACH TAB PO SCH (19:56)
[2023-10-05 00:05] VITALS: TEMP 98
[2023-10-05] MEDS: LACTATED RINGERS 1,000 ML IV SCH ×2 (07:00)
[2023-10-05 07:27] LABS: Basophils % (A) 0 %; Eosinophils # (A) 0.1 k/uL (0-0.7); Eosinophils % (A) 1 %; HCT 39.7 % (34.0-46.0); HGB 13.5 gm/dL (11.4-16.0); Lymphocytes # (A) 1.3 k/uL (1.0-4.8); Lymphocytes % (A) 15 %; MCH 29.5 pg (25.0-35.0); MCV 86.6 fL (80.0-100.0); Mean Platelet Volume 7.9; Monocytes # (A) 0.5 k/uL (0-1.0); Monocytes % (A) 6 %; Neutrophils # (A) 6.4 k/uL (1.3-7.7); Neutrophils % (A) 75 %; Platelet Count 160 k/uL (150-450); RBC 4.58 m/uL (3.80-5.40); RDW 13.4 % (11.5-15.5); WBC 8.5 k/uL (3.8-10.6)
[2023-10-05] MEDS ORDERED: ACETAMINOPHEN TAB 325 MG TAB PO PRN (09:04)
[2023-10-05 09:18] VITALS: BP 114/62; PULSE 66; RESP 15
--- NOTE | 2023-10-05 11:25 | P.DS ---
Providers Expected date of discharge: 10/05/23 Attending physician: Hubert Chen Primary care physician: Nam Vicente - Discharge Diagnosis(es) (1) Cystocele Current Visit: Yes Status: Acute (2) Uterine prolapse Current Visit: Yes Status: Acute Hospital Course: The patient is a 72-year-old 3 para 3003 who has a known history of symptomatic cystocele and uterine prolapse. She has previously undergone repair of rectocele and the last several years at which time of the above prolapse was not present. She underwent evaluation by urology for an need for a concomitant bladder suspension and was thought not to be a candidate. As a result, she was taken the operating room where she underwent vaginal hysterectomy with anterior colporrhaphy in an uncomplicated fashion. Her postoperative course was unremarkable with vital signs remaining stable and her temperature was afebrile throughout. She had a vaginal packing and catheter removed on the morning of postoperative day #1 and then underwent a voiding trial at which time she was able to void the vast majority of the urine in her bladder with a minimal postvoid residual 2. She was deemed stable for discharge on postoperative day #1 was discharged home to follow-up in the office in 2 weeks for recheck in 6 weeks routinely. Discharge instructions included calling for any significantly increased bleeding, fever, pain, urinary complaints, GI complaints, or anything else that concerned her. She was most importantly instructed to do no heavy lifting over the next 6 weeks and to abstain from anything in the vagina over the same period of time. She understood all of her instructions and agrees to follow up as noted above. Discharge medications included only her normal home medications as well as [id number] analgesic pain medications. She declined a prescription for narcotics. Discharge hemoglobin and hematocrit were 13.5 and 39.7 respectively. Procedures: #1. Vaginal hysterectomy #2. Anterior colporrhaphy Patient Condition at Discharge: Stable Plan - Discharge Summary Discharge Rx Participant: No New Discharge Prescriptions: No Action Potassium Chloride [Klor-Con 10] 30 meq PO HS amLODIPine [Norvasc] 10 mg PO HS Simvastatin 40 mg PO DAILY Alendronate Sodium 70 mg PO WEEKLY Calcium Carbonate/Vitamin D3 [Calcium 600 mg-D3 20 mcg (800 unit)] 1 tab PO DAILY Magnesium 250 mg PO HS Levothyroxine Sodium 100 mcg PO DAILY Nitrofurantoin Monohyd/M-Cryst [Macrobid] 100 mg PO Q12HR Discharge Medication List Potassium Chloride [Klor-Con 10] 30 meq PO HS 12/05/17 [History] amLODIPine [Norvasc] 10 mg PO HS 12/05/17 [History] Magnesium 250 mg PO HS 06/30/21 [History] Alendronate Sodium 70 mg PO WEEKLY 09/27/23 [History] Calcium Carbonate/Vitamin D3 [Calcium 600 mg-D3 20 mcg (800 unit)] 1 tab PO DAILY 09/27/23 [History] Levothyroxine Sodium 100 mcg PO DAILY 09/27/23 [History] Nitrofurantoin Monohyd/M-Cryst [Macrobid] 100 mg PO Q12HR 09/27/23 [History] Simvastatin 40 mg PO DAILY 09/27/23 [History] Follow up Appointment(s)/Referral(s): Hubert Chen MD [STAFF PHYSICIAN] - 2 Weeks Patient Instructions/Handouts: Vaginal Hysterectomy (GEN) Discharge Disposition: HOME SELF-CARE
--- NOTE | 2023-10-05 12:11 | P.PN ---
Progress Note - Text Progress Note Date: 10/05/23 Postoperative day 1 status post vaginal hysterectomy under general endotracheal anesthesia, and intrathecal morphine given for postoperative analgesia, patient doing well, there is no anesthesia related complications, Patient had no headache, vital signs stable , Assessment and plan= postop day 1 , doing well there is no anesthesia related complication.
[2023-10-05] MEDS: SENNOSIDES-DOCUSATE SODIUM 1 EACH TAB PO SCH (12:23)
== END 2023-10-05 11:35 | disposition home or self-care (01) ==
LOC: OR 05:59 → 4FBP 09:27 → OR 10-05 11:35
PROVIDERS: ATTEND Obstetrics & Gynecology
DX: D25.1 Intramural leiomyoma of uterus (principal); N84.1 Polyp of cervix uteri; N84.0 Polyp of corpus uteri; N72 Inflammatory disease of cervix uteri; G89.18 Other acute postprocedural pain; J45.909 Unspecified asthma, uncomplicated; E03.9 Hypothyroidism, unspecified; I10 Essential (primary) hypertension; E78.5 Hyperlipidemia, unspecified; D68.51 Activated protein C resistance; Z85.850 Personal history of malignant neoplasm of thyroid; Z79.899 Other long term (current) drug therapy; Z79.890 Hormone replacement therapy; Z88.2 Allergy status to sulfonamides
CPT/HCPCS: 58260; 57240; 62323; 85025; 88307; J2250; J0330; J1200; J1100; J0690; J2405; J2001; J2274; J3010; J1885; J2704; J1790

== ENCOUNTER → 2024-04-02 | Outpatient (CLI) | payer MEDICARE ==
--- NOTE | 2024-04-07 23:17 | MM ---
Reason for Exam: Screening (asymptomatic). Last screening mammogram was performed 12 month(s) ago. Patient History: Menarche at age 13. First Full-Term at age 20. Postmenopausal. Other cancer, age 53. Currently using Unspecified Hormone, for 3 years. 12/18/2017, Benign Core Biopsy on the left side. Risk Values: Sandra 5 year model risk: 1.5%. NCI Lifetime model risk: 3.9%. Prior Study Comparison: 12/18/2017 Left Diagnostic Mammogram, [facility]. 08/20/2018 Left Diagnostic Mammogram, [facility]. 03/23/2023 Bilateral MG 3D screening mammo w/cad, [facility]. Tissue Density: There are scattered areas of fibroglandular density. Findings: Analyzed By CAD. The pattern is symmetrical. Heart appears stable. Core markers within the left breast. Benign vascular calcifications present bilaterally. Benign spherical calcifications are present bilaterally. No suspicious groups of microcalcifications, spiculated or lobular masses, architectural distortion or other secondary signs of malignancy are mammographically apparent. Overall Assessment: Benign, BI-RAD 2 Management: Screening Mammogram of both breasts in 1 year. A negative mammogram report should not preclude additional follow up of suspicious palpable abnormalities. Patient should continue monthly self breast exam. A clinical breast exam by your physician is recommended on an annual basis and results should be correlated with mammographic findings. Note on Sandra scores and lifetime risk: 1. A Sandra score greater than 3% is considered moderate risk. If this is the case, consider specialist referral to assess eligibility for a risk reducing agent. 2. If overall lifetime risk for the development of breast cancer is 20% or higher, the patient may qualify for future screening with alternating mammogram and breast MRI. Electronically signed and approved by: Nam Ruvalcaba D.O. Radiologis
== END | disposition home or self-care (01) ==
LOC: RADMAMWWP 15:02
PROVIDERS: ATTEND Family Medicine
DX: Z12.31 Encounter for screening mammogram for malignant neoplasm of breast (principal); Z78.0 Asymptomatic menopausal state
CPT/HCPCS: 77063; 77067